=== PATIENT | female | born 1940 ===

== ENCOUNTER → 2021-10-31 11:05 | Outpatient (BNVA) | payer MEDICARE, SELFPAY | PROVIDERS: PCP Internal Medicine; Visit Provider Nurse Practitioner Family | DX: G89.29 Other chronic pain (principal); M54.9 Dorsalgia, unspecified; M53.3 Sacrococcygeal disorders, not elsewhere classified; M47.816 Spondylosis without myelopathy or radiculopathy, lumbar region; M21.612 Bunion of left foot; M79.672 Pain in left foot; L84 Corns and callosities; Z79.899 Other long term (current) drug therapy | CPT/HCPCS: 99202 ==